=== PATIENT | male | born 1960 | race Caucasian/White ===

== ENCOUNTER 2020-03-08 09:37 | Day surgery (SDC) | payer MEDICARE ==
[~2020-03-08] VITALS: Ht 182.9 cm; Wt 113.6 kg
[2020-03-08 10:00] VITALS: BP 158/104
[2020-03-08] MEDS ORDERED: SODIUM CHLORIDE 0.9% 1,000 ML IV SCH (10:00)
[2020-03-08] MEDS ORDERED: OXYC10TA6 PO (10:15)
[2020-03-08] MEDS ORDERED: PARO10TA3 PO (10:15)
[2020-03-08] MEDS ORDERED: ASPI81TA45 PO (10:15)
[2020-03-08] MEDS ORDERED: ROSU5TAB PO (10:15)
[2020-03-08] MEDS ORDERED: LEVE500T53 PO (10:15)
[2020-03-08] MEDS ORDERED: AMLO-150 PO (10:15)
[2020-03-08] MEDS ORDERED: OMEP-110 PO (10:15)
[2020-03-08] MEDS ORDERED: MELO15TA24 PO (10:15)
[2020-03-08 10:27] LABS: BASOPHILS # (AUTO) 0.06 x10^3/uL (0-0.1); BASOPHILS % (AUTO) 1 % (0-1); EOSINOPHILS # (AUTO) 0.16 x10^3/uL (0-0.4); EOSINOPHILS % (AUTO) 3 % (1-7); LYMPHOCYTES # (AUTO) 1.77 x10^3/uL (1-3.4); LYMPHOCYTES % (AUTO) 34 % (22-44); MD NO; MEAN CORPUSCULAR HEMOGLOBIN 31.9 pg (27.5-34.5); MEAN CORPUSCULAR HGB CONC 34.1 g/dL (33.2-36.2); MEAN CORPUSCULAR VOLUME 93.5 fL (81-97); MEAN PLATELET VOLUME 9.7 fL (7.4-10.4); MONOCYTES % (AUTO) 8 % (2-9); NEUTROPHILS # (AUTO) 2.83 x10^3/uL (1.8-6.8); NEUTROPHILS % (AUTO) 54 % (42-75); PLATELET COUNT 192 x10^3/uL (130-400); RED BLOOD COUNT 4.92 x10^6/uL (4.38-5.82); RED CELL DISTRIBUTION WIDTH 13.7 % (9.4-14.8)
[2020-03-08] MEDS ORDERED: PLEASE ENTER HEIGHT AND WEIGHT MC SCH (10:30)
[2020-03-08 10:39] LABS: ALBUMIN 4.1 g/dL (3.4-5.0); ANION GAP 7 mmol/L (5-15); CALCIUM 8.7 mg/dL (8.5-10.1); CHLORIDE 110 mmol/L (98-107)
[2020-03-08 10:42] LABS: ALANINE AMINOTRANSFERASE 118 U/L (12-78); ALKALINE PHOSPHATASE 135 U/L (45-117); BILIRUBIN,TOTAL 0.8 mg/dL (0.2-1.0); CREATININE 1.12 mg/dL (0.7-1.3); TOTAL PROTEIN 7.5 g/dL (6.4-8.2)
[2020-03-08] MEDS ORDERED: BIVALIRUDIN 250 MG ONE (11:19)
[2020-03-08] MEDS ORDERED: HEPARIN 1,000 UNITS/ML, 10ML ONE (11:19)
[2020-03-08] MEDS ORDERED: TICAGRELOR 90 MG TABLET ONE (11:19)
[2020-03-08] MEDS ORDERED: LIDOCAINE-MPF 1%, 5ML ONE (11:19)
[2020-03-08] MEDS ORDERED: FENTANYL PF 100 MCG/2ML ONE (11:19)
[2020-03-08] MEDS ORDERED: VERAPAMIL 2.5 MG/ML, 2ML ONE (11:19)
[2020-03-08] MEDS ORDERED: MIDAZOLAM 1 MG/ML, 5ML ONE (11:19)
== END 2020-03-08 13:45 | disposition home or self-care (01) ==
LOC: CACL 09:37
PROVIDERS: ATTEND Internal Medicine Cardiovascular Disease
DX: I45.10 Unspecified right bundle-branch block (principal); I25.118 Atherosclerotic heart disease of native coronary artery with other forms of angina pectoris; I25.83 Coronary atherosclerosis due to lipid rich plaque; I10 Essential (primary) hypertension; E78.5 Hyperlipidemia, unspecified; F41.9 Anxiety disorder, unspecified; K21.9 Gastro-esophageal reflux disease without esophagitis; G40.909 Epilepsy, unspecified, not intractable, without status epilepticus; G47.30 Sleep apnea, unspecified; Z79.82 Long term (current) use of aspirin; Z79.1 Long term (current) use of non-steroidal anti-inflammatories (NSAID); Z79.891 Long term (current) use of opiate analgesic; Z79.899 Other long term (current) drug therapy; Z87.891 Personal history of nicotine dependence; Z88.8 Allergy status to other drugs, medicaments and biological substances; Z98.890 Other specified postprocedural states; Z82.49 Family history of ischemic heart disease and other diseases of the circulatory system
CPT/HCPCS: 36415; 80053; 85025; 93458; 99156; C1769; C1894; J1644; J2250; J3010; Q9967; J0583